=== PATIENT | female | born 2000 | race Caucasian/White ===

== ENCOUNTER 2020-03-25 11:54 | Emergency (ER) | payer OTHER ==
[~2020-03-25] VITALS: Ht 167.6 cm; Wt 72.7 kg
[2020-03-25 12:00] VITALS: TEMP 97.8
[2020-03-25] MEDS ORDERED: EFFEXOR XR75 MG/CAP PO (13:31)
[2020-03-25 13:45] VITALS: BP 132/77; PULSE 80
== END 2020-03-25 13:47 | disposition home or self-care (01) ==
LOC: COL.ER 11:54
DX: Z20.3 Contact with and (suspected) exposure to rabies (principal); Z29.14 Encounter for prophylactic rabies immune globulin

== ENCOUNTER → 2020-03-28 | Outpatient (CLI) | payer OTHER ==
[~2020-03-28] MED LIST: EFFEXOR XR75 MG/CAP PO
[2020-03-28 08:45] VITALS: BP 115/70; PULSE 95; TEMP 98.4
== END ==
LOC: COL.ER 08:34
DX: R69 Illness, unspecified (principal)

== ENCOUNTER 2020-04-08 16:47 | Outpatient (RCR) | payer OTHER ==
[2020-04-08 17:08] VITALS: BP 127/74; PULSE 87; TEMP 98.5
== END 2020-06-30 | disposition home or self-care (01) ==
LOC: COL.ER
DX: Z20.3 Contact with and (suspected) exposure to rabies (principal); Z23 Encounter for immunization